=== PATIENT | female | born 1985 | race Two or more races ===

== ENCOUNTER 2021-01-26 08:44 | Outpatient (CLI) | payer OTHER | END 2021-01-26 08:56 | disposition home or self-care (01) | LOC: LAB 08:44 | DX: Z20.818 Contact with and (suspected) exposure to other bacterial communicable diseases (principal); Z20.828 Contact with and (suspected) exposure to other viral communicable diseases ==

== ENCOUNTER 2022-02-12 04:44 | Outpatient (CLI) | payer OTHER | END 2022-02-12 14:04 | disposition home or self-care (01) | LOC: LAB 04:44 | PROVIDERS: ATTEND Obstetrics & Gynecology | DX: Z20.828 Contact with and (suspected) exposure to other viral communicable diseases (principal); Z20.818 Contact with and (suspected) exposure to other bacterial communicable diseases ==